=== PATIENT | male | born 1955 | race Caucasian/White ===

== ENCOUNTER 2016-06-07 12:32 | Emergency (ER) | payer OTHER ==
[~2016-06-07] VITALS: Ht 167.6 cm; Wt 95.5 kg
[~2016-06-07 12:32] MED LIST: ASPI325T32 PO; BENA1TAB15 PO; CALC500T9 PO; CHOL10008 PO; EZET10TA PO; HYDR-3825 PO; ISOS60TA2 PO; METO-272 PO; NITR0.4T6 SL; OMEG-38 PO; PANT40TA3 PO; RANO10003 PO; ROSU40TA PO
[2016-06-07 12:40] VITALS: BP 136/84; PULSE 72; RESP 16; O2SAT 97
--- NOTE | 2016-06-07 13:40 | ED.REPORT ---
HPI-General Illness Date of Service Jun 07, 2016 ED Provider: Dr. Munoz 61 year old male with a hx of CAD s/p CABG on ASA daily who presents to the ED with mild chest pain and generalized malaise for 5 days. The chest pain is intermittent and worse with exertion. Mild constant pain. The pain is similar to angina from previous DC. Movement does not exacerbate the pain. He feels increased fatigue and nausea. Pt denies fever, vomiting. Pt had a normal stress test 2.5 years ago per old records. Nursing Notes Stated Complaint: CHEST PAIN/VOMITING Chief Complaint: Chest Pain Nursing Notes Reviewed: Yes Allergies: Coded Allergies: Sulfa (Sulfonamide Antibiotics) (Verified Allergy, Severe, Rash,Itching,, 07/24/15) atorvastatin (Verified Allergy, Severe, Diarrhea, 07/24/15) Scheduled Aspirin (Aspirin) 325 Mg Tablet.dr 325 MG PO DAILY Benazepril / HCTZ 20-25 mg (Benazepril / HCTZ 20-25 mg) 1 Each Tablet 1 EACH PO DAILY Calcium Carbonate (Tums) 500 Mg Tab.chew 1,000 MG PO DAILY Cholecalciferol (Vitamin D3) (Vitamin D3) 1,000 Unit Tab.chew 1,000 UNIT PO DAILY Ezetimibe (Zetia) 10 Mg Tablet 10 MG PO HS Isosorbide MN ER (Isosorbide MN ER) 60 Mg Tab.er.24h 60 MG PO QAM Metoprolol Succinate ER (Metoprolol Succinate ER) 50 Mg Tab.er.24h 25 MG PO DAILY Tiline-3/Dha/Epa/Fish Oil (Fish Oil 1,000 mg Softgel) 1 Each Capsule 1 EACH PO BID Pantoprazole (Pantoprazole DR) 40 Mg Tablet.dr 40 MG PO DAILY Ranolazine ER (Ranexa) 1,000 Mg Tab.er.12h 1,000 MG PO BID Rosuvastatin Calcium (Crestor) 40 Mg Tablet 40 MG PO HS Scheduled PRN Hydrocodone-Acetaminophen 7.5-325 mg (Hydrocodone-Acetaminophen 7.5-325 mg) 1 Each Tablet 1 TABLET PO Q4H PRN PRN For Pain Nitroglycerin SL (Nitroglycerin SL) 0.4 Mg Tab.subl 0.4 MG SL Q5MIN PRN PRN For Chest Pain General Time Seen by MD: 13:40 Chief Complaint Chest pain Hx Obtained From: Patient, Spouse Arrived By: Walk-in Sudden in Onset?: No Onset Occurred: 5 days ago Symptom Duration: Since onset (and intermittent) Location: : Chest Quality: Painful Severity: Current: Mild Severity: Maximum: Moderate Associated with: Reports: Nausea, Denies: Fever, Shortness of breath, Vomiting Similar Sx Previous: Yes Past Medical History Past Medical History Notes: PCP [facility], cardiology Lo CABG 2007, graft occluded 3 mo post Past Medical History Reports: Asthma, Coronary artery disease, Hyperlipidemia, Hypertension, Denies: Diabetes mellitus Past Surgical History l foot skin graft for trauma, L shoulder surgery, cardiac stents Reports: CABG Family History strongly positive both parents Smoking History Former Smoker Social History Alcohol Use: "Social" Drug Use: Denies drug use Other Social History: Local resident Ambulatory Status Independent Review of Systems Full Review of Systems Constitutional: Reports: Malaise, Denies: Fever Respiratory: Denies: Non-productive cough, Shortness of breath Cardiovascular: Reports: Chest pain GI: Reports: Nausea, Denies: Vomiting Skin: Denies Diaphoresis, Denies Rash Complete sys rev & neg: except as marked. Physical Exam Vital Signs Vital Signs Date Time Temp Pulse Resp B/P Pulse Ox O2 Delivery O2 Flow Rate FiO2 06/07/16 14:30 66 17 116/67 98 Room Air 06/07/16 12:40 36.4 72 16 136/84 97 Room Air Initial VS: Reviewed General/Constitutional: Well-developed, Well-nourished Head / Eyes: Atraumatic, Normocephalic, PERRL ENT: Mucous membranes moist, Conjunctiva normal, No scleral icterus Neck: Supple, Non-tender, Full range of motion Respiratory: Breath sounds normal, Clear to auscultation, No respiratory distress Abdomen / GI: Soft, Non-tender, No guarding, No rebound, No distention Extremities: Vascular intact, Neuro intact, No swelling, No tenderness Skin: Warm, Dry, No cyanosis Neurologic: Alert, Oriented, Nonfocal Psychiatric: Mood/affect normal, Behavior normal, Normal thought content Respiratory / Chest: Breath sounds NL, Breath sounds = bilat, No respiratory distress, No rales, No rhonchi, No wheezing Cardiovascular: Heart rate NL, Regular rhythm, Heart sounds NL, No murmurs, Cap refill not delayed, Peripheral circulation NL Interpretation & Diagnostics Lab Results Interpretation Result Diagram: 06/07/16 1305 06/07/16 1305 Test 06/07/16 13:05 06/07/16 13:45 White Blood Count 7.7th/mm3 (3.8-10.1) Red Blood Count 5.48mil/mm3 (4.40-5.80) Hemoglobin 16.2g/dL (13.8-17.2) Hematocrit 46.5% (41.0-50.0) Mean Corpuscular Volume 84.9fL (81-100) Mean Corpuscular Hemoglobin 29.6pg (27.0-35.0) Mean Corpuscular Hemoglobin Concent 34.8% (32.0-37.0) Red Cell Distribution Width 12.9% (12.3-15.4) Platelet Count 164bil/L (150-400) Neutrophils (%) (Auto) 67.8% (40-74) Lymphocytes (%) (Auto) 20.3% (14-46) Monocytes (%) (Auto) 7.8% (4-12) Eosinophils (%) (Auto) 3.7% (0-5) Basophils (%) (Auto) 0.3% (0-3) Sodium Level 136mEq/L (134-144) Potassium Level 4.4mEq/L (3.5-5.2) Chloride Level 98mEq/L (97-108) Carbon Dioxide Level 22mmol/L (18-29) Blood Urea Nitrogen 24mg/dL (6-24) Creatinine 1.07mg/dL (0.76-1.27) Estimat Glomerular Filtration Rate 75mL/min (>59) Glucose Level 370mg/dL (60-99) Calcium Level 9.6mg/dL (8.5-10.1) Magnesium Level 2.1mg/dL (1.6-2.6) Total Bilirubin 0.5mg/dL (0.0-1.2) Aspartate Amino Transf (AST/SGOT) 19U/L (0-50) Alanine Aminotransferase (ALT/SGPT) 33U/L (0-44) Alkaline Phosphatase 52U/L (25-160) Troponin T < 0.010ug/L (0.0-0.011) Total Protein 7.2g/dL (6.4-8.4) Albumin 4.3g/dL (3.4-5.0) Hold Tineo Top Tube Received (Received) Hold Urine Received (Received) General Lab Results Interp 1: Labs reviewed ECG Interpretation Time: 12:57 Interpreted by: ED physician Normal ECG Interpretation: Normal ECG w/ rate of... (64) X-Ray Chest Interpretation Chest Xray Interpretation: IMPRESSION: No acute cardiopulmonary findings. Dictated by: Sheryl Figueroa M.D. on 06/07/2016 at 13:52 View: Portable, 1 view Interpretation / Wet Read by: Interpret - Radiologist Re-Eval/Medical Decision Time of Eval: 16:16 Patient Status: Condition resolved Re-Evaluation/Progress Note: Updated pt of labs, ECG and imaging results. Discussed plan for discharge and follow up. All questions addressed. Counseled Regarding: Diagnosis, Lab results, Need for follow-up, When/why to return to ED Discharge & Departure Primary Impression: Chest pain Chest pain type: unspecified Qualified Code: R07.9 - Chest pain, unspecified Disposition: Home Discharge Condition All VS Reviewed: Yes Condition: Improved Patient Instructions: Chest Pain (ED) Additional Instructions: Your work up today was reassuring. There was no sign of heart attack and there was no other dangerous cause for your pain identified today. I recommend that you do not exert yourself until cleared to do so by your mail machine operator. If you develop chest pain, use your nitroglycerin until the pain goes away. Call the mail machine operator, Dr. Harvey, tomorrow to schedule a follow up appointment in the next few days. You may need to have a stress test. I would also like you to schedule an appointment with Dr. Naidu. Return to the ER for severe chest pain without relief from rest or nitro, shortness of breath or any other concerning symptoms. Referrals: José Miguel Naidu MD (PCP) Yessi Kiran MD Scribe Attestation Portions of this note were transcribed by Mellissa Bangura. I, (Dr. Munoz) personally performed the history, physical exam and medical decision-making; I reviewed and confirmed the accuracy of the information in the transcribed note. Signed by: Mellissa Bangura. 06/07/2016, 0000 copies to: Yessi Kiran MD; José Miguel Naidu MD, Kirk H MD Jun 07, 2016 13:40 Mellissa Bangura Jun 07, 2016 13:50
[2016-06-07 13:41] LABS: BASOPHILS % (AUTO) 0.3 % (0-3); EOSINOPHILS % (AUTO) 3.7 % (0-5); MONOCYTES % (AUTO) 7.8 % (4-12); Mean Corpuscular Hemoglobin 29.6 pg (27.0-35.0); Mean Corpuscular Volume 84.9 fL (81-100); NEUTROPHILS % (AUTO) 67.8 % (40-74); Platelet Count 164 bil/L (150-400)
[2016-06-07 13:51] LABS: TROPONIN T < 0.010 ug/L (0.0-0.011)
--- NOTE | 2016-06-07 13:54 | DRSVH ---
PROCEDURE: X-RAY CHEST ONE VIEW, PORTABLE ([id number]) INDICATIONS: CP TECHNIQUE: One view of the chest was acquired. COMPARISON: [facility], CR, XR CHEST 1VW (PORTABLE), 07/24/2015, 11:11. FINDINGS: Surgical changes and devices: Patient is status post median sternotomy and CABG. Lungs and pleura: No pleural effusions or pneumothorax. Lungs are clear. Mediastinum: Mediastinal contours appear normal. Heart size is normal. Bones and chest wall: No suspicious bony lesions. Overlying soft tissues appear unremarkable. IMPRESSION: No acute cardiopulmonary findings. Dictated by: Sheryl Figueroa M.D. on 06/07/2016 at 13:52 Approved by: Sheryl Figueroa M.D. on 06/07/2016 at 13:52
[2016-06-07 14:01] LABS: Magnesium 2.1 mg/dL (1.6-2.6)
[2016-06-07 14:30] VITALS: BP 116/67; PULSE 66; RESP 17; O2SAT 98
== END 2016-06-07 16:40 | disposition home or self-care (01) ==
LOC: SED 12:32
DX: R07.9 Chest pain, unspecified (principal); R53.81 Other malaise; I11.9 Hypertensive heart disease without heart failure; I25.10 Atherosclerotic heart disease of native coronary artery without angina pectoris; J45.909 Unspecified asthma, uncomplicated; E78.5 Hyperlipidemia, unspecified; Z95.1 Presence of aortocoronary bypass graft; Z95.5 Presence of coronary angioplasty implant and graft; Z79.82 Long term (current) use of aspirin; Z87.891 Personal history of nicotine dependence; Z88.2 Allergy status to sulfonamides; Z88.8 Allergy status to other drugs, medicaments and biological substances